=== PATIENT | male | born 1960 | race American Indian/Alaskan Native ===

== ENCOUNTER 2017-01-05 09:04 | Outpatient (CLI) | payer BC ==
--- NOTE | 2017-01-05 10:08 | XRay Report ---
Left knee 3 views: History: Left knee pain. Findings: No bony or articular abnormality. No fracture or dislocation or soft tissue calcification. Suspicion of fluid in the suprapatellar bursa. Impression: Suspicion of fluid in the suprapatellar bursa.
== END 2017-01-05 09:05 | disposition home or self-care (01) ==
LOC: SPVWC 09:04 → SPVIMAG 09:04
PROVIDERS: ATTEND Internal Medicine
DX: G89.29 Other chronic pain (principal); M25.562 Pain in left knee

== ENCOUNTER 2018-08-22 08:44 | Outpatient (CLI) | payer BC ==
--- NOTE | 2018-08-22 15:48 | Magnetic Resonance Report ---
MRI LEFT SHOULDER WITHOUT CONTRAST: 08/22/18 CLINICAL: Left shoulder pain. TECHNIQUE: Coronal T1, coronal T2, coronal proton density fat saturation, sagittal proton density fat saturation and axial gradient echo T* sequences on a 1.5 Sachi magnet. 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 Tendinosis of the supraspinatus and infraspinatus tendons. A full-thickness tear of the supraspinatus tendon at its attachment to the greater tuberosity with approximately 1 cm retraction of the supraspinatus tendon. No muscle atrophy. The rest of the rotator cuff is intact. A split tear of the intra-articular portion of the biceps tendon. The glenoid labrum is intact. No joint effusion. Normal marrow signal with no bone contusion or fracture. IMPRESSION: 1. Full-thickness tear of the distal supraspinatus tendon with 1 cm of retraction of the tendon. 2. Supraspinatus and infraspinatus tendinosis. 3. A split tear of the intra-articular biceps tendon and normal attachment at the superior labrum. 4. Acromioclavicular joint arthritis with impingement of the rotator cuff. 5. No bone contusion or fracture.
== END 2018-08-22 08:45 | disposition home or self-care (01) ==
LOC: SPVIMAG 08:44
DX: M75.92 Shoulder lesion, unspecified, left shoulder (principal); M19.012 Primary osteoarthritis, left shoulder